=== PATIENT | female | born 1940 | race Caucasian/White ===

== ENCOUNTER 2019-06-14 09:46 | Outpatient (CLI) | payer MEDICARE ==
--- NOTE | 2019-06-14 11:36 | ULT ---
Hepatic sonogram with duplex evaluation HISTORY: Hepatosteatosis. Findings: Gallbladder is surgically absent. Common duct is 0.5 cm. Liver is hyperechoic with heteroge neous echotexture. No focal mass. No free fluid. Spleen measures up to 11.5 cm. Good color and spectral Doppler flow within the hepatic and splenic arteries. Portal venous flow is t owards the liver. Hepatic venous flow is towards the IVC. IMPRESSION: Status post cholecystectomy. Hepatosteatosis. No evidence of portal venous hypertension.
== END 2019-06-14 09:47 | disposition home or self-care (01) ==
LOC: BICULT 09:46
PROVIDERS: ATTEND Physician Assistant Medical
DX: K75.81 Nonalcoholic steatohepatitis (NASH) (principal); R19.7 Diarrhea, unspecified; Z90.49 Acquired absence of other specified parts of digestive tract
CPT/HCPCS: 76705